=== PATIENT | male | born 1985 | race Caucasian/White ===

== ENCOUNTER 2019-03-17 19:03 | Emergency (ER) | payer SELFPAY ==
[~2019-03-17] VITALS: Ht 175.3 cm; Wt 45.4 kg
[2019-03-17 19:10] VITALS: BP 135/79
--- NOTE | 2019-03-17 19:13 | NUR ---
TO LOBBY A/W BED AMBULATORY
--- NOTE | 2019-03-17 20:02 | NUR ---
DR. VILLAFANA AT BEDSIDE.
[2019-03-17] MEDS ORDERED: KETOROLAC 15 MG/ML VIAL IM ONE (20:10)
[2019-03-17 20:36] VITALS: BP 135/79
--- NOTE | 2019-03-17 20:36 | NUR ---
Patient discharged with v/s stable. Written and verbal after care instructions given and explained. Patient alert, oriented and verbalized understanding of instructions. Ambulatory with steady gait. All questions addressed prior to discharge. ID band removed. Patient advised to follow up with PMD. Rx of KEFLEX AND BACTRIM WERE given. Patient educated on indication of medication including possible reaction and side effects. Opportunity to ask questions provided and answered. PT REFUSED MEDICATION FOR PAIN, PAIN LEVEL 0/10 PRIOR TO D/C
== END 2019-03-17 20:36 | disposition home or self-care (01) ==
LOC: MED 19:03
DX: L73.9 Follicular disorder, unspecified (principal)
CPT/HCPCS: 99283; J1885